=== PATIENT | female | born 1965 | race Caucasian/White ===

== ENCOUNTER → 2019-11-04 | Outpatient (CLI) | payer OTHER ==
[~2019-11-04] VITALS: Ht 172.7 cm; Wt 76.2 kg
[~2019-11-04] MED LIST: ASA81BEC PO; FISH OIL 1,001000 M2 PO; MULTIVITAMINS1 EAC7 PO; NEXIUM40 MG PO; OMEPRAZOLE40 MG PO; VITAMIN B-1250 MC2 PO; VITAMIN D325 MC3 PO; VITAMIN E400 UNIT PO; VITAMINC500 PO
--- NOTE | 2019-11-05 16:08 | PATH ---
[facility] [address] [place] [address] PATHOLOGY RPT PROCEDURE Name: ORIANA WRIGHT Room #: REG CELENA Dasilva.#: [id number] Admission: 11/04/19 Date of : 61 Discharge: Report #: [id number] Path Case #: [id number] [facility] Accession Number: [id number] . 01 Material submitted: . gastrointestinal site - BIOPSY OF GASTRITIS RULE OUT H PYLORI . 01 Clinical history: . R/O H. pylori; reflux ulcer . 02 Diagnosis: Gastric mucosa, gastritis rule out H. pylori, endoscopic biopsy: - Mild chronic gastritis with features of reactive gastropathy. - Negative for intestinal metaplasia or atrophy. - Negative for Helicobacter pylori (properly-controlled immunohistochemical stain performed). . (IUV:mml; 11/05/2019) QLM 11/05/2019 1210 Local . 02 Electronically signed: . Felicita Locke MD, Pathologist NPI- [id number] . 01 Gross description: . The specimen is received in formalin, labeled "Oriana Wright, biopsy of gastritis, R/O H. pylori". Received are five segments of pale jacques soft tissue ranging in size from 0.2 to 0.6 cm in maximum dimensions. The specimen is submitted entirely in cassette A1. (CAA; 11/04/2019) QA/QA 11/04/2019 1344 Local . 02 Pathologist provided ICD-10: K29.50 . 02 CPT . 305759, [id number] Specimen Comment: A courtesy copy of this report has been sent to [phone] Specimen Comment: Report sent to Performed at: [address], [place] [id number] MD Ashok Elias MD Phone: [phone] Performed at: [address] [id number] MD Felicita Locke MD Phone: [phone]
--- NOTE | 2019-11-06 12:27 | P ---
[facility] [place] [address] PROCEDURE REPORT Name: ORIANA HOLGUIN Room #: REG [facility]#: [id number] Admission: 11/04/19 Attend Phys: Abdullahi Gerber MD Discharge: Date of : 61 Report #: [id number] THIS REPORT FOR: cc: LORI GANT Physician not on staff Abdullahi Gerber MD ~ CC: LORI GANT DO Abdullahi Gerber Physician staff DATE OF SERVICE: 11/04/2019 OUTPATIENT UPPER ENDOSCOPY REPORT BRIEF HISTORY: The patient is a 54-year-old woman who was seen recently with complaints of increasing abdominal pain even though she has been taking omeprazole 4 mg daily. She also has intermittent solid food dysphagia. She has had previous esophageal dilation for the same. PREOPERATIVE DIAGNOSIS: Epigastric pain on PPI therapy as well as solid food dysphagia. POSTOPERATIVE DIAGNOSES: 1. Mild diffuse gastritis. 2. Dysphagia. MEDICATIONS: Deep sedation with propofol per anesthesia. SPECIMEN: Biopsies of gastritis. ESTIMATED BLOOD LOSS: 3 mL. PROCEDURE: EGD with biopsy, Nowak dilation. FINDINGS: Prior to propofol sedation, procedure of upper endoscopy and dilation was discussed with the patient as well as potential risks and its complications. She indicates she understands and desires to proceed. DESCRIPTION OF PROCEDURE: With the patient in left lateral decubitus position, the Olympus video endoscope was inserted in the cervical esophagus under direct vision without difficulty. Examination of this organ through its entire length revealed normal esophageal mucosa down to the squamocolumnar junction. Squamocolumnar junction was inspected and noted to be unremarkable. No evidence of erosions, ulcers, strictures or masses. A significant hiatus hernia was not seen. Scope was advanced into the stomach, was examined on end view as well as [facility] [address] [place] [address] PROCEDURE REPORT Name: ORIANA HOLGUIN [id number] Admission: 11/04/19 Attend Phys: Abdullahi Gerber MD Discharge: Date of : 61 Report #: [id number] retroflexed views. She was found to have evidence of an erythematous gastritis. No ulcers or erosions were seen. No bleeding lesions were seen. There were no retained solids or liquids in the stomach. Upon retroflexion, no abnormalities were noted. The cardia was unremarkable. No mass lesions were seen. The pylorus was unremarkable. Duodenal bulb and postbulbar sweep were inspected and noted to be unremarkable. At that point, the scope was slowly withdrawn and careful circumferential views confirmed the above finding. Biopsies obtained of the gastritis to evaluate for H. pylori. The patient tolerated the procedure well. Subsequently, she was dilated with passage of a 52-Serbian Nowak dilator. There was no resistance to passage of the dilator. CONDITION OF THE PATIENT UPON DISCHARGE: Following the procedure, the patient was drowsy. She will be discharged home when fully ambulatory. INSTRUCTIONS TO THE PATIENT AND FAMILY AT THE TIME OF DISCHARGE: She has developed increasing epigastric tenderness and discomfort on PPI therapy. She does have gastritis, no ulcers. We will follow up on biopsies obtained today. At this point in time, we will place her on pantoprazole 40 mg twice daily. We will have her return to see me in followup in the office in about 6 weeks or so. If she continues to be symptomatic and does not respond to the PPI, consider repeating ultrasound of the abdomen to further evaluate her gallbladder. Her last ultrasound was about 4 years ago. Has further dysphagia, I did not see definite stricturing. However, she has responded to dilation in the past and should return on an as needed basis. <ELECTRONICALLY SIGNED> By: Abdullahi Gerber MD 11/06/19 1227 [id number] [id number] Abdullahi Gerber MD /nt
== END | disposition home or self-care (01) ==
LOC: GI 06:34
DX: R10.13 Epigastric pain (principal); R13.10 Dysphagia, unspecified; K29.50 Unspecified chronic gastritis without bleeding; K31.9 Disease of stomach and duodenum, unspecified; K21.9 Gastro-esophageal reflux disease without esophagitis; Z98.890 Other specified postprocedural states; Z79.899 Other long term (current) drug therapy; Z90.710 Acquired absence of both cervix and uterus
CPT/HCPCS: 62110; 62900